=== PATIENT | female | born 1965 | race Caucasian/White ===

== ENCOUNTER 2021-09-06 22:24 | Inpatient (IN) | payer SELFPAY ==
[2021-09-06] MEDS ORDERED: Zolpidem Tartrate 5 MG TAB PO PRN (23:32)
[2021-09-06] MEDS ORDERED: Nitroglycerin 0.4 MG TAB (25 Tab Bottle) SL PRN (23:32)
[2021-09-06] MEDS ORDERED: Ondansetron PF 4 MG/2 ML Vial IVP PRN (23:32)
[2021-09-06] MEDS ORDERED: Bisacodyl 5 MG TAB PO PRN (23:32)
[2021-09-06] MEDS ORDERED: HYDROcodone/Acetaminophen 7.5/325 mg Tablet PO PRN (23:32)
[2021-09-06] MEDS ORDERED: Aspirin 325 MG TAB PO SCH (23:45)
[2021-09-07 00:14] LABS: Troponin I 0.086 ng/mL (< 0.028)
[2021-09-07 00:41] LABS: SARS-CoV-2 NAA Rapid Test Not Detected (NotDetected)
[2021-09-07] MEDS ORDERED: Metoprolol Tartrate 25 MG TAB PO SCH (00:45)
[2021-09-07] MEDS ORDERED: Losartan/Hydrochlorothiazide 100 mg/25 mg Tablet PO SCH (00:45)
[2021-09-07 01:29] VITALS: BMI 65.9
[2021-09-07] MEDS: niCARdipine 25 MG in Sodium Chloride 0.9% 250 ML 250 ML IVPB SCH ×2 (03:21→06:14)
[2021-09-07 03:45] LABS: #Basophils 0.1 thou/uL (0.0-0.2); #Eosinphils 0.1 thou/uL (0.0-0.7); #Lymphocytes 1.8 thou/uL (1.20-3.40); #Monocytes 0.8 thou/uL (0.11-0.59); #Neutrophils 6.4 thou/uL (1.40-6.50); %Basophils 0.6 % (0.0-1.0); %Eosinophils 1.3 % (0.0-10.0); %Lymphocytes 19.8 % (21.0-51.0); %Monocytes 8.5 % (0.0-10.0); %Neutrophils 69.9 % (42.0-75.0); Hemoglobin 14.8 g/dL (12.0-16.0); Mean Corpuscular HGB CONC 33.4 g/dL (32.0-36.0); Mean Corpuscular Hemoglobin 29.3 pg (27.0-31.0); Mean Corpuscular Volume 87.8 fL (78.0-98.0); Mean Platelet Volume 7.7 fL (7.4-10.4); Platelet Count 225 thou/uL (130-400); RBC Distribution Width 12.4 % (11.5-14.5); Red Blood Cell (RBC) Count 5.05 mill/uL (4.20-5.40); White Blood Cell (WBC) Count 9.1 thou/uL (4.8-10.8)
[2021-09-07 04:05] LABS: Albumin 3.6 g/dL (3.5-5.0); Anion Gap 15 mmol/L (10-20); BUN (Urea Nitrogen) 11 mg/dL (9.8-20.1); Calc. Creatinine Clearance 192 mL/min (70-130); Calcium 8.9 mg/dL (7.8-10.44); Carbon Dioxide 24 mmol/L (22-29); Cardiac Risk 4.4 (Less than 4.5); Chloride 101 mmol/L (98-107); Cholesterol 153 mg/dl (< 200 Desired); Glucose 141 mg/dL (70-105); HDL Cholesterol 35 mg/dL (>60 Neg Risk); LDL Cholesterol, Calculated 100 mg/dL; Phosphorus 2.8 mg/dL (2.3-4.7); Potassium 3.7 mmol/L (3.5-5.1); Sodium 136 mmol/L (136-145); Triglycerides 92 mg/dL (Less than 150)
[2021-09-07 04:07] LABS: Troponin I 0.038 ng/mL (< 0.028)
[2021-09-07] MEDS: Acetaminophen 325 MG TAB PO PRN ×2 (05:56→17:54)
[2021-09-07] MEDS: Enoxaparin Sodium 40 MG/0.4 ML SYRINGE SC SCH (07:52)
[2021-09-07] MEDS: Famotidine 20 MG TAB PO SCH ×2 (07:53→20:14)
[2021-09-07] MEDS: Metoprolol Tartrate 25 MG TAB PO SCH ×2 (07:53→20:13)
[2021-09-07] MEDS: Aspirin Chewable 81 MG TAB PO SCH (07:53)
[2021-09-07] MEDS: Losartan/Hydrochlorothiazide 100 mg/25 mg Tablet PO SCH (07:53)
[2021-09-07] MEDS ORDERED: hydrALAZINE 20 MG/ML VIAL SLOW IVP PRN (13:35)
[2021-09-07] MEDS ORDERED: hydrALAZINE 20 MG/ML VIAL SLOW IVP SCH (13:45)
[2021-09-07] MEDS ORDERED: Amlodipine 5 MG TAB PO SCH ×2 (14:45→21:00)
[2021-09-07] MEDS ORDERED: Amlodipine 10 MG TAB PO SCH (16:30)
[2021-09-07] MEDS: hydrALAZINE 25 MG TAB PO SCH (20:14)
[2021-09-07] MEDS: clonazePAM 0.5 MG TAB PO SCH (20:14)
[2021-09-07] MEDS ORDERED: Electrolyte Replacement Protocol 1 EACH FS PRN (22:30)
[2021-09-07 22:59] LABS: Anion Gap 14 mmol/L (10-20); BUN (Urea Nitrogen) 15 mg/dL (9.8-20.1); Calc. Creatinine Clearance 150 mL/min (70-130); Calcium 9.4 mg/dL (7.8-10.44); Carbon Dioxide 26 mmol/L (22-29); Chloride 99 mmol/L (98-107); Glucose 130 mg/dL (70-105); Potassium 3.9 mmol/L (3.5-5.1); Sodium 135 mmol/L (136-145)
[2021-09-07] MEDS ORDERED: Magnesium 2 GM/50 ML(in water) 2 GM in Premix Bag 1 BAG IVPB SCH (23:30)
[2021-09-08 06:04] LABS: Magnesium 2.3 mg/dL (1.6-2.6)
[2021-09-08] MEDS: Enoxaparin Sodium 40 MG/0.4 ML SYRINGE SC SCH (08:44)
[2021-09-08] MEDS: Metoprolol Tartrate 25 MG TAB PO SCH ×2 (08:45→20:43)
[2021-09-08] MEDS: Acetaminophen 325 MG TAB PO PRN (08:45)
[2021-09-08] MEDS: Losartan/Hydrochlorothiazide 100 mg/25 mg Tablet PO SCH (08:46)
[2021-09-08] MEDS: Aspirin Chewable 81 MG TAB PO SCH (08:46)
[2021-09-08] MEDS: Amlodipine 10 MG TAB PO SCH (08:46)
[2021-09-08] MEDS: Famotidine 20 MG TAB PO SCH ×2 (08:46→20:43)
[2021-09-08] MEDS: hydrALAZINE 25 MG TAB PO SCH ×3 (08:46→20:43)
[2021-09-08] MEDS: clonazePAM 0.5 MG TAB PO SCH (20:43)
[2021-09-09 05:21] LABS: Anion Gap 13 mmol/L (10-20); BUN (Urea Nitrogen) 23 mg/dL (9.8-20.1); Calc. Creatinine Clearance 147 mL/min (70-130); Calcium 9.2 mg/dL (7.8-10.44); Carbon Dioxide 24 mmol/L (22-29); Chloride 103 mmol/L (98-107); Glucose 127 mg/dL (70-105); Sodium 136 mmol/L (136-145)
[2021-09-09] MEDS ORDERED: Regadenoson 0.4 MG/5 ML SYRINGE ONE (11:19)
[2021-09-09] MEDS: Enoxaparin Sodium 40 MG/0.4 ML SYRINGE SC SCH (12:03)
[2021-09-09] MEDS: Famotidine 20 MG TAB PO SCH ×2 (12:03→20:30)
[2021-09-09] MEDS: Amlodipine 10 MG TAB PO SCH (12:03)
[2021-09-09] MEDS: Aspirin Chewable 81 MG TAB PO SCH (12:03)
[2021-09-09] MEDS: Losartan/Hydrochlorothiazide 100 mg/25 mg Tablet PO SCH (12:04)
[2021-09-09] MEDS: Metoprolol Tartrate 25 MG TAB PO SCH (12:04)
[2021-09-09] MEDS: hydrALAZINE 25 MG TAB PO SCH ×3 (12:04→20:30)
[2021-09-09] MEDS: clonazePAM 0.5 MG TAB PO SCH (20:30)
[2021-09-09] MEDS: Metoprolol Tartrate 100 MG TAB PO SCH (20:30)
[2021-09-09] MEDS ORDERED: clonazePAM 0.5 MG TAB PO PRN (20:41)
[2021-09-10 04:46] VITALS: TEMP 98.2
[2021-09-10 05:38] LABS: Anion Gap 13 mmol/L (10-20); BUN (Urea Nitrogen) 23 mg/dL (9.8-20.1); Calc. Creatinine Clearance 155 mL/min (70-130); Calcium 9.4 mg/dL (7.8-10.44); Carbon Dioxide 24 mmol/L (22-29); Chloride 104 mmol/L (98-107); Glucose 120 mg/dL (70-105); Potassium 4.1 mmol/L (3.5-5.1); Sodium 137 mmol/L (136-145)
[2021-09-10] MEDS: hydrALAZINE 25 MG TAB PO SCH (08:11)
[2021-09-10] MEDS: Aspirin Chewable 81 MG TAB PO SCH (08:11)
[2021-09-10] MEDS: Metoprolol Tartrate 100 MG TAB PO SCH (08:11)
[2021-09-10] MEDS: Amlodipine 10 MG TAB PO SCH (08:11)
[2021-09-10] MEDS: Losartan/Hydrochlorothiazide 100 mg/25 mg Tablet PO SCH (08:11)
[2021-09-10] MEDS: Famotidine 20 MG TAB PO SCH (08:11)
[2021-09-10] MEDS: Enoxaparin Sodium 40 MG/0.4 ML SYRINGE SC SCH (08:12)
[2021-09-10 11:39] VITALS: BP 100/50
== END 2021-09-10 13:11 | disposition home or self-care (01) | DRG 281 ==
LOC: ERS 22:24 → CCU 23:20 → 2SW 09-07 23:43
PROVIDERS: ADMIT Student in an Organized Health Care Education/Training Program; ATTEND Internal Medicine
DX: I16.1 Hypertensive emergency (principal); I21.A1 Myocardial infarction type 2; I47.1 Supraventricular tachycardia; Z68.44 Body mass index [BMI] 60.0-69.9, adult; E87.1 Hypo-osmolality and hyponatremia; I16.0 Hypertensive urgency; E66.01 Morbid (severe) obesity due to excess calories; M25.512 Pain in left shoulder; F41.9 Anxiety disorder, unspecified; N18.30 Chronic kidney disease, stage 3 unspecified; I34.0 Nonrheumatic mitral (valve) insufficiency; I12.9 Hypertensive chronic kidney disease with stage 1 through stage 4 chronic kidney disease, or unspecified chronic kidney disease; I44.4 Left anterior fascicular block; R53.81 Other malaise; R73.9 Hyperglycemia, unspecified; Z20.822 Contact with and (suspected) exposure to COVID-19; Z90.49 Acquired absence of other specified parts of digestive tract; Z98.890 Other specified postprocedural states; Z82.49 Family history of ischemic heart disease and other diseases of the circulatory system; Z91.14 Patient's other noncompliance with medication regimen; Z79.899 Other long term (current) drug therapy; Z79.82 Long term (current) use of aspirin; Z79.891 Long term (current) use of opiate analgesic
CPT/HCPCS: 36415; 78452; 80048; 80061; 80069; 83735; 84443; 84484; 85025; 93005; 93010; 93017; 93306; 94760; 96374; A9500; J0360; J1650; J2405; J2785; J3475; J7050; U0002